=== PATIENT | male | born 2000 | race Caucasian/White ===

== ENCOUNTER 2024-02-21 19:14 | Inpatient (IN) | payer MEDICAID ==
[~2024-02-21] VITALS: Ht 180.3 cm; Wt 97.5 kg
[2024-02-21 19:32] VITALS: BP_SYST 156; PULSE 103; RESP 20; TEMP 97.4; O2SAT 97
[2024-02-21 21:35] LABS: BASOPHILS # (AUTO) 0.1 K/uL (0.0-0.2); EOSINOPHILS % (AUTO) 0.3 % (0.0-4.0); HEMATOCRIT 46.4 % (36-54); HEMOGLOBIN 16.2 g/dL (14.0-18.0); LYMPHOCYTES # (AUTO) 1.8 K/uL (1.0-5.5); LYMPHOCYTES % (AUTO) 12.1 % (20.5-51.5); MEAN CORPUSCULAR HEMOGLOBIN 31 pg (27-31); MEAN CORPUSCULAR HGB CONC 35 % (32-36); MEAN CORPUSCULAR VOLUME 89 fL (79.0-98.0); MONOCYTES # (AUTO) 1.5 K/uL (0.0-1.0); MONOCYTES % (AUTO) 10.2 % (1.7-9.3); NEUTROPHILS # (AUTO) 11.4 K/uL (1.8-7.7); NEUTROPHILS % (AUTO) 76.4 % (40.0-70.0); PLATELET COUNT (AUTO) 271 K/uL (130-430); RED BLOOD CELL COUNT(AUTO) 5.24 MIL/uL (4.2-6.2); WHITE BLOOD COUNT (AUTO) 14.9 K/uL (4.8-10.8)
[2024-02-21 21:35] LABS: BILIRUBIN,URINE NEGATIVE (NEGATIVE); BLOOD, URINE 2+ (NEGATIVE); CLARITY/URINE CLEAR (CLEAR); COLOR,URINE YELLOW (YELLOW); GLUCOSE,URINE NEGATIVE (NEGATIVE); KETONES,URINE NEGATIVE (NEGATIVE); LEUKOCYTE ESTERASE ,URINE NEGATIVE (NEGATIVE); NITRITE, URINE NEGATIVE (NEGATIVE); PROTEIN URINE NEGATIVE (NEGATIVE); UROBILINOGEN,URINE 0.2 (0.2-1.0)
[2024-02-21] MEDS ORDERED: MORPHINE 2 MG/ML INJ. SYRINGE IVP PRN (21:45)
[2024-02-21 21:48] LABS: BACTERIA,URINE FEW /HPF (None Seen); MUCUS,URINE None Seen /LPF (None Seen); WBC,URINE 0-3 /HPF (0-3)
[2024-02-21 21:51] LABS: POTASSIUM 3.8 mmol/L (3.5-5.1)
[2024-02-21 21:54] LABS: BILIRUBIN,DIRECT 0.2 mg/dL (0.0-0.3); CALCIUM 9.5 mg/dL (8.4-11.0); CREATININE 0.99 mg/dL (0.55-1.30); TOTAL BILIRUBIN 0.8 mg/dL (0.0-1.0)
[2024-02-21 21:55] LABS: ALBUMIN 3.9 g/dL (3.4-4.8); TOTAL PROTEIN, SERUM 8.2 g/dL (6.4-8.3)
[2024-02-21] MEDS ORDERED: CEFEPIME 1 GM/VIAL (MAXIPIME) ONE (22:07)
[2024-02-21] MEDS: CEFEPIME 1 GM in D5W 50 ML IV ONE (22:14)
[2024-02-21] MEDS: NACL 0.9% 1,000 ML IV ONE (22:22)
[2024-02-21] MEDS: MORPHINE 4 MG INJ. 4 MG/ML VIAL IVP PRN (22:28)
[2024-02-21] MEDS: ONDANSETRON HCL 4 MG/2 ML VIAL IVP PRN (22:29)
[2024-02-21] MEDS: LORazepam 2 MG/ML VIAL IVP PRN (23:35)
[2024-02-21] MEDS: POTASSIUM CHLORIDE 10 MEQ in NACL 0.9% 1,000 ML IV SCH (23:45)
[2024-02-21] MEDS ORDERED: hydrALAZINE HCL 25 MG TABLET PO PRN (23:45)
[2024-02-22] VITALS (7 sets, daily range): BP systolic 118–143; PULSE 65–91; RESP 14–18; TEMP 97.7–98.8; O2SAT 97–99
[2024-02-22] MEDS: PIPERACILLIN/TAZOBACTAM 3.375 GM/VIAL (ZOSYN) IV ONE (01:47)
[2024-02-22] MEDS: PIPERACILLIN/TAZO 3.375 GM in D5W 50 ML IV SCH ×2 (05:17→21:31)
[2024-02-22 08:41] LABS: BASOPHILS % (AUTO) 0.2 % (0.0-2.0); EOSINOPHILS # (AUTO) 0.1 K/uL (0.0-0.4); EOSINOPHILS % (AUTO) 0.6 % (0.0-4.0); HEMATOCRIT 43.4 % (36-54); HEMOGLOBIN 14.9 g/dL (14.0-18.0); LYMPHOCYTES # (AUTO) 1.7 K/uL (1.0-5.5); LYMPHOCYTES % (AUTO) 12.9 % (20.5-51.5); MEAN CORPUSCULAR HEMOGLOBIN 31 pg (27-31); MEAN CORPUSCULAR HGB CONC 34 % (32-36); MEAN CORPUSCULAR VOLUME 90 fL (79.0-98.0); MONOCYTES # (AUTO) 1.5 K/uL (0.0-1.0); MONOCYTES % (AUTO) 11.4 % (1.7-9.3); NEUTROPHILS # (AUTO) 10.2 K/uL (1.8-7.7); NEUTROPHILS % (AUTO) 74.9 % (40.0-70.0); PLATELET COUNT (AUTO) 251 K/uL (130-430); RED CELL DISTRIBUTION WIDTH 13.8 % (9.0-15.0); WHITE BLOOD COUNT (AUTO) 13.6 K/uL (4.8-10.8)
[2024-02-22 08:49] LABS: PROTHROMBIN TIME 10.2 SECS (9.5-12.5)
[2024-02-22 09:06] LABS: ALBUMIN 3.5 g/dL (3.4-4.8); CREATININE 1.09 mg/dL (0.55-1.30); TOTAL BILIRUBIN 0.8 mg/dL (0.0-1.0); TOTAL PROTEIN, SERUM 7.2 g/dL (6.4-8.3)
[2024-02-22] MEDS: LR 1,000 ML IV SCH (18:00)
[2024-02-22] MEDS ORDERED: MEPERIDINE HCL/PF 25 MG/ML DISP.SYRIN IVP PRN (18:00)
[2024-02-22] MEDS ORDERED: ONDANSETRON HCL 4 MG/2 ML VIAL IVP PRN (18:00)
[2024-02-22] MEDS ORDERED: NALOXONE HCL 0.4 MG/ML AMP (NARCAN) IVP PRN (18:00)
[2024-02-22] MEDS: PIPERACILLIN/TAZO 3.375 GM in D5W 50 ML IV ONE (18:00)
[2024-02-22] MEDS ORDERED: HYDROcodone/ACETAMIN 5-325 MG TAB (NORCO/ VICODIN) PO PRN (18:15)
[2024-02-22] MEDS: fentaNYL CITRATE/PF 100 MCG/2 ML AMP ONE (18:21)
[2024-02-22] MEDS ORDERED: DEXAMETHASONE SOD PHOSPHATE 4 MG/ML VIAL ONE (18:23)
[2024-02-22] MEDS: MORPHINE 2 MG/ML INJ. SYRINGE ONE (18:56)
[2024-02-22] MEDS: MORPHINE 4 MG INJ. 4 MG/ML VIAL IVP PRN (18:59)
[2024-02-22] MEDS: HYDROmorphone 1 MG/ML INJ. CARTRIDGE ONE ×2 (19:11→19:32)
[2024-02-22] MEDS: HYDROmorphone 1 MG/ML INJ. CARTRIDGE IM PRN (19:12)
[2024-02-22] MEDS: HYDROmorphone 1 MG/ML INJ. CARTRIDGE IVP PRN (19:33)
[2024-02-23] VITALS: BP_SYST 130; PULSE 79; RESP 18; TEMP 97.4; O2SAT 96
[2024-02-23 05:50] LABS: BASOPHILS % (AUTO) 0.2 % (0.0-2.0); HEMATOCRIT 45.4 % (36-54); HEMOGLOBIN 15.6 g/dL (14.0-18.0); LYMPHOCYTES # (AUTO) 1.1 K/uL (1.0-5.5); LYMPHOCYTES % (AUTO) 11.5 % (20.5-51.5); MEAN CORPUSCULAR HEMOGLOBIN 31 pg (27-31); MEAN CORPUSCULAR HGB CONC 34 % (32-36); MEAN CORPUSCULAR VOLUME 89 fL (79.0-98.0); MONOCYTES # (AUTO) 0.6 K/uL (0.0-1.0); MONOCYTES % (AUTO) 6.6 % (1.7-9.3); NEUTROPHILS # (AUTO) 7.6 K/uL (1.8-7.7); NEUTROPHILS % (AUTO) 81.7 % (40.0-70.0); PLATELET COUNT (AUTO) 289 K/uL (130-430); RED BLOOD CELL COUNT(AUTO) 5.09 MIL/uL (4.2-6.2); RED CELL DISTRIBUTION WIDTH 13.7 % (9.0-15.0); WHITE BLOOD COUNT (AUTO) 9.3 K/uL (4.8-10.8)
[2024-02-23 06:09] LABS: CALCIUM 9.4 mg/dL (8.4-11.0); CREATININE 0.94 mg/dL (0.55-1.30); POTASSIUM 4.2 mmol/L (3.5-5.1)
[2024-02-23 07:34] VITALS: BP_SYST 123; PULSE 100; RESP 18; TEMP 98; O2SAT 98
[2024-02-23] MEDS ORDERED: METR-154 PO (07:59)
[2024-02-23] MEDS ORDERED: CIPR500S4 PO (07:59)
[2024-02-23 09:41] VITALS: O2SAT 98
[2024-02-23 10:45] VITALS: BP_SYST 137; PULSE 75; RESP 18; TEMP 97.4; O2SAT 98
[2024-02-23 11:01] VITALS: BP_SYST 153; PULSE 87; RESP 16; TEMP 97.5; O2SAT 100
[2024-02-23] MEDS: ACETAMINOPHEN 325 MG TABLET PO PRN (12:05)
== END 2024-02-23 12:15 | disposition home or self-care (01) | DRG 710 ==
LOC: SED 19:14 → SMU 21:34 → OBSVTOIN 02-22 15:55 → SMU 02-22 16:38
PROVIDERS: ADMIT Internal Medicine; ATTEND Internal Medicine
PROC: 0DTJ4ZZ Resection of Appendix, Percutaneous Endoscopic Approach (ICD-10-PCS; principal; 2024-02-22 17:18)
DX: A41.9 Sepsis, unspecified organism (principal); K35.890 Other acute appendicitis without perforation or gangrene; Z79.899 Other long term (current) drug therapy
CPT/HCPCS: 36415; 80048; 80053; 80076; 81000; 81001; 81015; 83735; 85025; 85610; 87040; 87081; 88304; 96365; 99285; C1727; G0378; J0330; J0692; J1100; J1170; J2060; J2250; J2270; J2405; J2543; J2704; J2765; J3010; J3480; J3490; J7030; J7060; J7120